=== PATIENT | female | born 1945 | race Caucasian/White ===

== ENCOUNTER → 2021-12-06 | Outpatient (CLI) | payer MEDICARE ==
--- NOTE | 2021-12-06 17:31 | CA ---
Transthoracic Echo Report Name: Mary Damon Age: 75 Gender: F : 1945 Exam Date: 12/06/2021 08:35 Exam Location: [place] [facility] Ht (in): 69 Wt (lb): 164 Ordering Physician: Jacob Shell DO Attending/Referring Phys: Online Journalist Elizabeth Donohue RDCS Procedure CPT: Indications: R07.9 CHEST PAIN, UNSPECIFIED Cardiac Hx: Technical Quality: Fair Contrast 1: Total Dose (mL): Contrast 2: Total Dose (mL): MEASUREMENTS (Male / Female) Normal Values 2D ECHO LV Diastolic Diameter PLAX 4.0 cm 4.2 - 5.9 / 3.9 - 5.3 cm LV Systolic Diameter PLAX 2.6 cm IVS Diastolic Thickness 1.3 cm 0.6 - 1.0 / 0.6 - 0.9 cm LVPW Diastolic Thickness 1.1 cm 0.6 - 1.0 / 0.6 - 0.9 cm LV Relative Wall Thickness 0.6 RV Internal Dim ED PLAX 2.5 cm LA Volume 60.6 cm??? 18 - 58 / 22 - 52 cm??? M-MODE Aortic Root Diameter MM 3.1 cm LA Systolic Diameter MM 3.5 cm LA Ao Ratio MM 1.1 AV Cusp Separation MM 1.9 cm DOPPLER AV Peak Velocity 164.4 cm/s AV Peak Gradient 10.8 mmHg AI Peak Velocity 433.0 cm/s AI Peak Gradient 75.0 mmHg AI Pressure Half Time 483.4 ms LVOT Peak Velocity 95.2 cm/s LVOT Peak Gradient 3.6 mmHg MV Area PHT 4.2 cm??? Mitral E Point Velocity 59.6 cm/s Mitral A Point Velocity 74.0 cm/s Mitral E to A Ratio 0.8 MV Deceleration Time 179.2 ms MV E' Velocity 2.9 cm/s Mitral E to MV E' Ratio 20.6 TR Peak Velocity 203.5 cm/s TR Peak Gradient 16.6 mmHg Right Ventricular Systolic Press 21.6 mmHg FINDINGS Left Ventricle Moderately increased left ventricular wall thickness. Normal left ventricular systolic function with mild inferior wall hypokinesis. Left ventricular ejection fraction is estimated at 55 %. Right Ventricle Normal right ventricular size and function. Right ventricular systolic pressure within normal limits. Right Atrium Normal right atrial size. Left Atrium Mildly increased left atrial volume. Mitral Valve Mild mitral annular calcification. Mitral valve thickened. Trace mitral regurgitation. No mitral stenosis. Aortic Valve Trileaflet aortic valve. Aortic valve sclerosis. Mild aortic regurgitation. No aortic stenosis. Tricuspid Valve Structurally normal tricuspid valve. Mild tricuspid regurgitation. Pulmonic Valve Trace pulmonic regurgitation. Pericardium No pericardial effusion. Aorta CONCLUSIONS LVH with left radical ejection fraction greater than 50% Mild inferior wall hypokinesis Previewed by: Dr. Nando Vega MD (Electronically Signed) Final Date: 06 December 2021 17:31
== END | disposition home or self-care (01) ==
LOC: RADECHMAIN 08:14
PROVIDERS: ATTEND Family Medicine
DX: I08.3 Combined rheumatic disorders of mitral, aortic and tricuspid valves (principal)
CPT/HCPCS: 93306

== ENCOUNTER → 2021-12-31 | Outpatient (CLI) | payer MEDICARE | END | disposition home or self-care (01) | LOC: RADNMMAIN 08:38 | PROVIDERS: ATTEND Family Medicine | DX: Z53.9 Procedure and treatment not carried out, unspecified reason (principal) ==

== ENCOUNTER → 2022-06-08 | Outpatient (CLI) | payer MEDICARE ==
--- NOTE | 2022-06-10 09:34 | MR ---
EXAMINATION TYPE: MR brain and iac wo/w con DATE OF EXAM: 06/08/2022 9:54 AM CLINICAL INDICATION:Female, 76 years old with history of H93.19 TINNITUS, H91.90 hearing loss; COMPARISON: None TECHNIQUE: Multi planar, multi sequence imaging was performed through the brain. Specialized thin s equences were obtained through the internal auditory canals. Pre-and post gadolinium sequences were obtained. MR contrast: IV Contrast: 7.5 cc Gadavist FINDINGS: Motion limited exam. The burr-white junctions, ventricular system, and cisterns appear unremarkable. Scattered foci of h igh T2 signal intensity are seen within the periventricular white matter. Midline structures show no abnormality. Diffusion-weighted imaging shows no evidence of restricted diffusion. The susceptibility weighted images do not reveal any evidence for micro-hemorrhage. The bone marrow signal is within normal limits. Paranasal sinuses and mastoid air cells: Mild scattered paranasal sinus disease. Trace left mastoid a ir cell effusion. Visualized orbits: Orbital contents are intact. After administration of gadolinium, no abnormal enhancement is seen. Motion limited exam. The internal auditory canal sequences demonstrate no significant irregularity. The 7th cranial nerve s, 8 cranial nerves, and cerebellar pontine angles appear unremarkable. After the administration rolly olinium, no abnormal enhancement is seen within the internal auditory canals. Vascular loop: None. IMPRESSION: Motion limited exam. 1. No evidence of intracranial mass nor acute/subacute CVA. 2. No evidence of internal auditory canal abnormality. 3. Trace left mastoid air cell effusion. 4. Nonspecific white matter changes, likely secondary to small vessel ischemic disease.
== END | disposition home or self-care (01) ==
LOC: RADMRIMAIN 08:51
PROVIDERS: ATTEND Otolaryngology
DX: H93.12 Tinnitus, left ear (principal); H91.92 Unspecified hearing loss, left ear; R90.82 White matter disease, unspecified
CPT/HCPCS: 70553; A9585

== ENCOUNTER → 2023-07-11 | Outpatient (CLI) | payer MEDICARE ==
--- NOTE | 2023-07-11 14:54 | USB ---
Reason for Exam: Clinical finding. Patient History: Menarche at age 7. First Full-Term at age 21. Hysterectomy at age 40. Postmenopausal. Risk Values: Vanessa 5 year model risk: 1.7%. NCI Lifetime model risk: 2.8%. Technique: Method: Targeted. Findings: The upper outer quadrant of the left breast, the axilla of the left breast and the retroareolar of the left breast were scanned. There is an irregular hypoechoic lesion at the 2:00 position 6 cm from the nipple. This would correlate with the mammographic finding. A large vascular structures within. There is a large hypoechoic area extending from this region indicating communication which may be related to the lesion. Based on the apparent tail and the lesion, this lesion may measure 4.2 x 1.7 cm. Overall Assessment: Highly suggestive of malignancy, BI-RAD 5 Management: Surgical Consultation of the left breast. Ultrasound Core Biopsy of the left breast. A clinical breast exam by your physician is recommended on an annual basis and results should be correlated with mammographic findings. This exam should not preclude additional follow-up of suspicious palpable abnormalities. Results were given to the patient verbally at the time of exam. Electronically signed and approved by: Claudy Henderson D.O. Radiologis
== END | disposition home or self-care (01) ==
LOC: RADUSWWP 12:53
PROVIDERS: ATTEND Family Medicine
DX: N63.0 Unspecified lump in unspecified breast (principal); Z78.0 Asymptomatic menopausal state
CPT/HCPCS: 77066; 76642; G0279; 77062

== ENCOUNTER → 2023-07-17 | Outpatient (CLI) | payer MEDICARE ==
--- NOTE | 2023-07-17 14:22 | XR ---
EXAMINATION TYPE: XR abdomen 1V DATE OF EXAM: 07/17/2023 COMPARISON: NONE HISTORY: Pain TECHNIQUE: Single supine KUB image of the abdomen is obtained FINDINGS: Small bowel demonstrates no evidence for dilatation or air fluid levels. Gas and fecal material is seen in non-distended colon. No convincing evidence for pneumoperitoneum. No unusual calcifications. The lung bases are clear. The osseous structures are intact. IMPRESSION: 1. Overall nonobstructive bowel gas pattern.
== END | disposition home or self-care (01) ==
LOC: RADXRMAIN 09:55
PROVIDERS: ATTEND Family Medicine
DX: K59.00 Constipation, unspecified (principal); R10.9 Unspecified abdominal pain
CPT/HCPCS: 74018

== ENCOUNTER → 2023-08-07 | Day surgery (SDC) | payer MEDICARE ==
--- NOTE | 2023-08-15 13:37 | MM ---
Reason for Exam: Post Procedure Mammogram. Last screening mammogram was performed less than 1 month ago. Patient History: Menarche at age 7. First Full-Term at age 21. Hysterectomy at age 40. Postmenopausal. Risk Values: Vanessa 5 year model risk: 1.7%. NCI Lifetime model risk: 2.8%. Prior Study Comparison: 07/11/2023 Left US breast limited LT, [facility]. 07/11/2023 Bilateral MG 3D diag mammo w/cad LIVE, [facility]. Tissue Density: Left: There are scattered areas of fibroglandular density. Pathology Description: Location: 2 o'clock. Marker Left Behind. Needle Type: Mammotome Cores: 6 Gauge: 13 Pathology Description: Location: 3 o'clock. Marker Left Behind. Needle Type: Mammotome Cores: 4 Gauge: 13 The procedure of ultrasound guided core biopsy was explained to the patient. Benefits, alternatives, and risks were discussed. An informed consent was then obtained. The solid mass at the 2:00 position, 6 cm from the nipple is identified and targeted for biopsy. However, we note an elongated tail which extends from the mass which could potentially increased in size up to 3.9 cm if this represents tumor as well. For this reason, we decided to biopsy the tail separately. The patient was placed in supine positioning for imaging and for the procedure. The overlying skin was prepped and draped in usual sterile fashion. Lidocaine was used as anesthetic into the skin followed by lidocaine/epinephrine into the subcutaneous tissue up to area of concern in the left breast at each site in turn. A: 3:00 tail: Under ultrasound guidance, a 13-gauge vacuum-assisted mammotome Elite biopsy gun device was used to obtain 4 core samples. Following this, a HydroMark Butterfly clip was left in lesion. B: 2:00 Mass: Under ultrasound guidance, a 13-gauge vacuum-assisted mammotome Elite biopsy gun device was used to obtain 6 core samples. Following this, a HydroMark Coil clip was left at the far periphery of the lesion. The patient tolerated the procedure well without any immediate complication. The patient was kept in the radiology department for short stay after the procedure and then discharged home in stable condition. Postprocedure mammogram: The patient was transferred to mammography for physician ordered post procedure mammogram for clip placement verification. Post procedure mammogram shows clips in place. Distance between the 2 clips is nearly 4 cm. IMPRESSION: Successful, uncomplicated ultrasound guided core biopsy of both the 2:00 mass in the left breast as well as a contiguous tail which extends down to the 3:00 position. Distance between the 2 clips is nearly 4 cm. Full pathology results to follow. Pathology Results: Result: Malignant, Invasive ductal carcinoma. A. LEFT BREAST, THREE O'CLOCK, ULTRASOUND GUIDED NEEDLE CORE BIOPSY: Benign breast with fibrocystic changes including fibrosis and focal apocrine metaplasia. Rare microcalcifications are identified. B. LEFT BREAST, TWO O'CLOCK, ULTRASOUND GUIDED NEEDLE CORE BIOPSY: Invasive poorly differentiated ductal carcinoma (Grade 3) with cribriform features. See Surgical Pathology Cancer Case Summary. Overall Assessment: Malignant Assessment: MG diagnostic mammo LT wo CAD. - Left: Known biopsy proven malignancy, BI-RAD 6. Management: Surgical Consultation of the left breast. Electronically signed and approved by: Tiffanie Earl M.D. Radiologist
== END ==
LOC: RADUSWWP 12:23
PROVIDERS: ATTEND Surgery
DX: C50.212 Malignant neoplasm of upper-inner quadrant of left female breast (principal); N60.12 Diffuse cystic mastopathy of left breast; N60.82 Other benign mammary dysplasias of left breast; R92.8 Other abnormal and inconclusive findings on diagnostic imaging of breast; Z78.0 Asymptomatic menopausal state
CPT/HCPCS: 88305; 88342; 88341; 77065; 19083; 19084; A4648

== ENCOUNTER → 2023-08-21 | Outpatient (CLI) | payer MEDICARE ==
--- NOTE | 2023-08-21 11:44 | FL ---
EXAMINATION TYPE: FL barium enema DATE OF EXAM: 08/21/2023 COMPARISON: NONE HISTORY: Failed colonoscopy TECHNIQUE: A single contrast barium enema study is performed. A total of 2 minutes and 41 seconds o f fluoroscopic time was utilized during procedure and 25 images obtained. Total dose area product (D AP) in uGy*m?, mGy*cm? (or similar): The provided. FINDINGS: Tiller Man view of the abdomen shows overall non-obstructive bowel gas pattern. Diffuse osteope nanette with curvature of the spine. Vascular calcifications in the pelvis. Patient difficulty with retaining the enema barium enema catheter. Multiple attempts were made. Contr ast could be seen to level the transverse colon. There was evidence of redundancy of the sigmoid colo n with severe diverticulosis. Assessment for polypoid lesion limited. There was a area of localized n arrowing at the junction of the sigmoid colon and distal left colon. Difficult to determine if this i s related to diverticulosis. On the third attempt at contrast administration the area does distend sl ightly more than on the prior attempts. Stricture or annular lesion not excluded. IMPRESSION: 1. Redundancy of the sigmoid colon with severe diverticulosis. 2. Localized area of narrowing at the level of the junction of the left colon and proximal sigmoid co jennifer. This may be related to intramuscular hyperplasia\and muscular spasm from severe diverticulosis. On the third attempt at contrast administration the area does distend slightly more than on the prior attempts. An annular lesion not entirely excluded.
== END | disposition home or self-care (01) ==
LOC: RADFLMAIN 09:12
PROVIDERS: ATTEND Surgery
DX: K57.30 Diverticulosis of large intestine without perforation or abscess without bleeding (principal)
CPT/HCPCS: 74270

== ENCOUNTER 2023-08-29 08:25 | Day surgery (SDC) | payer MEDICARE ==
--- NOTE | 2023-08-29 07:35 | P.HPADDEND ---
H&P Addendum H&P Addendum Date: 08/29/23 Please refer to recent history and physicals from July. Patient here today after recently diagnosed stage IIa left breast cancer. She and I discussed the surgical options again at our recent visit. She underwent colonoscopy and subsequent barium enema as well. Will proceed with left breast wire locali zation lumpectomy with bracketed wires, left sentinel lymph node biopsy/injection. Risks of bleeding, infection, scarring, dimpling, numbness, poor healing, seroma, nerve injury, lymphedema, recurrence, possible need for further surgeries reviewed. Patient understands and wishes to proceed.
--- NOTE | 2023-08-29 07:35 | P.NAPBC ---
NAPBC Queries - NAPBC Queries Was patient's case review presented at [facility] tumor board? If no, comment.: Yes Was patient's pathology reviewed at [facility]? If no, comment.: Yes Was breast conservation surgery offered? If no, comment.: Yes Was sentinel node biopsy offered? If no, comment.: Yes Was diagnosis confirmed by percutaneous core biopsy? If no, comment.: Yes Is patient mastectomy patient?: No Was a preop referral to reconstructive surgeon offered?: Yes Clinical Stage: 2
[~2023-08-29 08:25] MED LIST: HYDROmorphone 0.5 MG/0.5 ML SYRINGE IVP PRN; LACTATED RINGERS 1,000 ML IV SCH; LIDOCAINE 1% (10MG/ML) FOR IV START INTRADERMA PRN; MIDAZOLAM 2 MG/2 ML VIAL IV PRN; fentaNYL (PF) 50 MCG/ML 2 ML AMP IV PRN
[2023-08-29] MEDS: ALPRAZolam 0.25 MG TAB PO STA (09:36)
[2023-08-29] MEDS: LIDOCAINE 1% INJ 10MG/ML (20 ML MDV) SQ ONE (10:13)
[2023-08-29 10:48] VITALS: TEMP 98.1
[2023-08-29] MEDS: DEXAMETHASONE SOD PHOSPHATE 4 MG/ML 1 ML VIAL IV ONE (11:00)
[2023-08-29] MEDS: IV FLUID CONTINUATION 1,000 ML IV ONE (11:00)
[2023-08-29] MEDS: ONDANSETRON 4 MG/2 ML VIAL IVP ONE (11:00)
[2023-08-29] MEDS: HEPARIN SODIUM,PORCINE 5,000 UNIT/ML 1 ML VIAL SQ ONE (11:42)
[2023-08-29] MEDS ORDERED: LIDOCAINE 1% INJ 10MG/ML (20 ML MDV) ONE (11:57)
[2023-08-29] MEDS ORDERED: MIDAZOLAM 2 MG/2 ML VIAL ONE (11:57)
[2023-08-29] MEDS ORDERED: PROPOFOL 10 MG/ML 20 ML VIAL IV ONE (11:57)
[2023-08-29] MEDS ORDERED: WATER FOR INJECTION, STERILE 10 ML VIAL IV ONE (11:57)
[2023-08-29] MEDS ORDERED: ePHEDrine 50 MG/ML 1 ML VIAL ONE (11:57)
[2023-08-29] MEDS ORDERED: fentaNYL (PF) 50 MCG/ML 2 ML AMP ONE (11:57)
[2023-08-29] MEDS: METHYLENE BLUE 50 MG/10 ML AMPUL MISCELLANE ONE (12:16)
[2023-08-29] MEDS: BUPIVACAINE (PF) 0.25% 30 ML VIAL SQ ONE ×2 (12:28)
[2023-08-29] MEDS: LACTATED RINGERS 1,000 ML IV ONE (13:01)
--- NOTE | 2023-08-29 13:05 | NM ---
EXAMINATION TYPE: NM sentinel node injection DATE OF EXAM: 08/29/2023 COMPARISON: NONE CLINICAL INDICATION: Female, 77 years old with history of C50.9 LEFT BREAST CANCER; TECHNIQUE AND FINDINGS: The procedure of sentinel lymph node injection was explained to the patient. The benefits, alternatives, and risks were discussed. An informed consent was then obtained. Overlying skin is cleaned with sterile alcohol. Following this, 485 uCi Tc99m Tilmanocept was inject ed in the upper outer aspect of the left nipple intradermally. The patient tolerated the procedure well without any immediate complication. The patient was kept in the radiology department for short stay after the procedure and then taken to surgery for surgical p rocedure what is presumed intraoperative gamma probe will be used for sentinel lymph node detection. IMPRESSION: Left breast radiotracer injection for sentinel node localization as above.
[2023-08-29] MEDS ORDERED: traMADol 50 MG TAB PO STA (13:50)
[2023-08-29] MEDS: LABETALOL SYRINGE 5 MG/ML (4 ML SYR) IVP STA (15:00)
[2023-08-29] MEDS: hydrALAZINE HCL 20 MG/ML 1 ML VIAL IVP PRN (16:10)
[2023-08-29] MEDS: ENALAPRILAT 1.25 MG/ML 1 ML VIAL IVP PRN (16:44)
[2023-08-29 17:52] VITALS: RESP 20
[2023-08-29 17:54] VITALS: BP 171/90; PULSE 80
[2023-08-29] MEDS: ENALAPRILAT 1.25 MG/ML 1 ML VIAL IVP STA (17:59)
[2023-08-29] MEDS ORDERED: ACETAMINOPHEN TAB 325 MG TAB PO SCH (18:00)
--- NOTE | 2023-08-29 18:00 | P.OP ---
Date of Procedure: 08/29/23 Procedure(s) Performed: PREOPERATIVE DIAGNOSIS: Left breast cancer POSTOPERATIVE DIAGNOSIS: Same PROCEDURE: Left breast wire localization lumpectomy with sentinel lymph node biopsy SURGEON: Gia EBL: 20 cc ANESTHESIA: General COMPLICATIONS: None OPERATIVE PROCEDURE: Patient was placed on the operating room table in the supine position. 2 mL of methylene blue was injected into the subareolar space. The breast was then massaged for 5 minutes. The breast was prepped and draped in usual sterile fashion. The left axilla was addressed at that time. The hot spot in the left axilla was identified. A small curvilinear incision was made using the scalpel. Dissection down through the subcutaneous tissues took place using electrocautery. Using the neoprobe I identified a total of 3 sentinel lymph nodes. One of the was blue in color. These had benign exam characteristics. These were all removed and sent to pathology for permanent sectioning. The surgical site was inspected and no bleeding was seen. The subcutaneous tissues were closed using 3-0 Vicryl sutures. The skin was closed using 4-0 Monocryl sutures. The patient had 2 wires entering the breast. One was superior and medial at around 1:00 the other was inferior and lateral at around 2:00. A curvilinear incision was first made between the 2 wire entrance sites. As I was starting to dissect superiorly it became evident that the tumor was immediately deep to the dermis. I decided to remove a curvilinear portion of skin overlying the palpable mass. The incision was then recreated superior to the wire entrance site. The lumpectomy took place excising tissue circumferentially around both the palpable mass at the superior medial wire and around the inferior wire as well. The specimen was painted the appropriate 6 colors. This was then sent to x-ray for imaging. Clips were used to identify the lumpectomy cavity. The clip was confirmed to be within the lumpectomy specimen by radiology. The subcutaneous tissues were closed using 3-0 Vicryl sutures. The skin was closed using a running 4-0 Monocryl stitch. Skin glue was then applied. DISPOSITION: Stable to recovery room
[2023-08-31] MEDS ORDERED: MELOXICAM 7.5 MG TAB PO SCH (09:00)
--- NOTE | 2023-09-10 10:51 | MM ---
Pathology Description: Approach: CC FA Needle Type: 7 cm Kopan 9 CM NEEDLE TOO/ BRACKETEDThe procedure of needle localization with wire placement and than surgical excision was explained to the patient. Benefits, alternatives, and risks were discussed. An informed consent was then obtained. Bracket technique and a superior approach was determined. The shortest pathway for procedure was chosen. Shortest pathway was a superior approach. The overlying skin was prepped and draped in usual sterile fashion. Lidocaine was used as anesthetic into the skin and subcutaneous tissue up to the level of area of concern. A 7 cm Kopans needle was used for the posterior bracket along the margin of the dominant mass. A 5 cm Kopans needle was used for the anterior bracket at the margin of the tail seen by ultrasound. These were placed via a superior approach under mammographic guidance. Subsequent 90 degrees mammogram show the needles to be in satisfactory position relative to the targeted area. At this point, wires were placed and the needles were withdrawn. The wire was fixed to patient's skin. Images were marked for surgeon. The patient tolerated the procedure well without any immediate complication. The patient was kept in the radiology department for short stay after the procedure and then taken to surgery for surgical excision. Targeted mass, both wires, and both clips are identified in specimen mammogram. The patient was kept in hospital for short stay after the procedure and then discharged home in stable condition. IMPRESSION: Successful, uncomplicated needle localization with bracketing and surgical excision of biopsy-proven left breast cancer including a tail extending from the mass. Full pathology results to follow. Pathology Results: Result: Malignant, Invasive ductal carcinoma. Pathology and radiology were reviewed. Findings are concordant. A. LEFT BREAST, LUMPECTOMY: Invasive grade 3 ductal carcinoma with cribriforming features and separate more lateral intermediate grade ductal carcinoma in situ (DCIS). See surgical pathology cancer case summary and comment. All margins negative for in situ or invasive carcinoma. B. LYMPH NODES, LEFT SENTINEL, DISSECTION: One of two sentinel lymph nodes positive for micrometastatic carcinoma (see comment and cancer protocol). Overall Assessment: Malignant Management: Surgical Consultation of the left breast. Electronically signed and approved by: Tiffanie Earl M.D. Radiologist
== END 2023-08-29 18:26 | disposition home or self-care (01) ==
LOC: OR 08:25
PROVIDERS: ATTEND Surgery
DX: D05.12 Intraductal carcinoma in situ of left breast (principal); N60.89 Other benign mammary dysplasias of unspecified breast; Z85.3 Personal history of malignant neoplasm of breast
CPT/HCPCS: 19301; 38500; 88342; 88307; 88341; 76098; 19281; 38792; C1819; A9520; J2250; J0360; J1644; J1100; J0690; J2405; J2001; J3010; J2704; Q9968; J0665; J1920

== ENCOUNTER → 2023-09-02 | Outpatient (CLI) | payer MEDICARE ==
[2023-09-02 11:15] LABS: African American GFR (CKD) 58 (>60 ml/min/1.73 sqM); Blood Urea Nitrogen 18 mg/dL (7-17); Non-African American GFR(CKD) 50 (>60 ml/min/1.73 sqM)
--- NOTE | 2023-09-02 13:29 | CT ---
EXAMINATION TYPE: CT abdomen pelvis w con CT DLP: 659.1 mGycm, Automated exposure control for dose reduction was used. DATE OF EXAM: 09/02/2023 1:00 PM COMPARISON: None CLINICAL INDICATION:Female, 77 years old with history of K57.92 DIVERTICULITIS; UNABLE TO VIEW COLON/ CONSTIPATION TECHNIQUE: Standard CT of the abdomen and pelvis following the administration of 100 cc of Isovue 3 00 IV contrast material and oral contrast. Coronal and sagittal reformats were performed. FINDINGS: LOWER CHEST: Bibasilar linear atelectasis. Skin thickening identified of the visualized left breast l ikely related to recent surgery. Cardiomegaly. Elevation of the right hemidiaphragm. ABDOMEN LIVER: Unremarkable GALLBLADDER AND BILE DUCTS: Calcified 1.7 cm gallstone identified. No biliary ductal dilatation. PANCREAS: Unremarkable. SPLEEN: Unremarkable. ADRENAL GLANDS: Unremarkable. KIDNEYS AND URETERS: No evidence of hydronephrosis or renal calculus. The kidneys enhance symmetrical ly. Subcentimeter hypodense focus within the left kidney which is too small to characterize but likel y represents a cyst. Contrast is demonstrated within both collecting systems on the delayed phase. PELVIS BLADDER: Unremarkable REPRODUCTIVE: Uterus appears surgically absent. ABDOMEN & PELVIS STOMACH AND BOWEL: No evidence of bowel obstruction. Enteric contrast reaches the rectum. Sigmoid div erticula are identified without definitive surrounding inflammatory changes. No focal bowel wall thic kening or surrounding inflammatory changes. No pericolonic fluid collections. PERITONEUM: No evidence of pneumoperitoneum or free fluid. VASCULATURE: Moderate atherosclerotic calcifications are present throughout the abdominal aorta and i ts branches. No evidence of aortic aneurysm. MUSCULOSKELETAL: No acute osseous abnormalities. No aggressive osseous lesion. Remote central talya terence deformities versus Schmorl's nodes involving the superior endplates of the L2, L3, L5 vertebral bodies. Remote anterior wedge compression deformity of the T11 vertebral body with approximately 40% height loss. No retropulsion. Grade 1 anterolisthesis of L4 on L5 without pars defects. LYMPH NODES: No gross evidence for lymphadenopathy. SOFT TISSUE/ABDOMINAL WALL: Unremarkable IMPRESSION: 1. Sigmoid diverticulosis without evidence for acute diverticulitis. 2. Cholelithiasis. 3. Postsurgical changes of the left breast partially visualized.
== END | disposition home or self-care (01) ==
LOC: RADCTMAIN 10:39
PROVIDERS: ATTEND Surgery
DX: K57.30 Diverticulosis of large intestine without perforation or abscess without bleeding (principal); K57.92 Diverticulitis of intestine, part unspecified, without perforation or abscess without bleeding; K80.20 Calculus of gallbladder without cholecystitis without obstruction
CPT/HCPCS: 74177; 82565; 84520

== ENCOUNTER → 2024-03-08 | Outpatient (CLI) | payer MEDICARE ==
--- NOTE | 2024-03-08 11:27 | XR ---
EXAMINATION TYPE: XR abdomen 1V DATE OF EXAM: 03/08/2024 10:44 AM COMPARISON: None. CLINICAL INDICATION: Female, 78 years old with history of K59.00 constipation, TECHNIQUE: Single view of the abdomen. FINDINGS: Small bowel demonstrates no evidence for dilatation or air fluid levels. Gas and fecal material is seen in non-distended colon. No convincing evidence for pneumoperitoneum. No unusual calcifications. The lung bases are clear. The osseous structures are intact. IMPRESSION: 1. Overall nonobstructive bowel gas pattern. [facility], , 03/08/2024 11:25 AM
== END | disposition home or self-care (01) ==
LOC: RADXRMAIN 10:24
PROVIDERS: ATTEND Family Medicine
DX: K59.00 Constipation, unspecified (principal)
CPT/HCPCS: 74018

== ENCOUNTER → 2024-07-01 | Outpatient (CLI) | payer MEDICARE ==
--- NOTE | 2024-07-01 11:11 | MM ---
Reason for Exam: Additional evaluation requested from prior study. Last screening mammogram was performed 12 month(s) ago. Patient History: Menarche at age 7. First Full-Term at age 21. Hysterectomy at age 40. Postmenopausal. Breast cancer, left, age 77. Breast cancer, left, age 77. 08/29/2023, Lumpectomy on the Left side. 08/29/2023, Malignant MG pre op needle loc LT on the left side. 08/07/2023, US biopsy breast add'l VAD LT on the Left side. 08/07/2023, Malignant US biopsy breast VAD LT on the left side. Tissue Density: There are scattered areas of fibroglandular density. Findings: Analyzed By CAD. Postsurgical and posttreatment changes left breast. No suspicious microcalcification or discrete abnormality is seen here. Ongoing short interval surveillance follow-up recommended given recent breast cancer treatment. Chronic nodularity and asymmetric densities on the right. Benign vascular calcifications on the right. Overall Assessment: Probably benign, BI-RAD 3 Management: Diagnostic Mammogram of the left breast in 6 months. To assess for any evolving posttreatment change. Results were given to the patient verbally at the time of exam. Patient should continue monthly self-breast exams. A clinical breast exam by your physician is recommended on an annual basis. This exam should not preclude additional follow-up of suspicious palpable abnormalities. [facility], , 07/01/2024 11:08 AM. Electronically signed and approved by: Tiffanie Earl M.D. Radiologist
== END | disposition home or self-care (01) ==
LOC: RADMAMWWP 10:42
PROVIDERS: ATTEND Surgery
DX: R92.8 Other abnormal and inconclusive findings on diagnostic imaging of breast (principal); R92.323 Mammographic fibroglandular density, bilateral breasts; Z78.0 Asymptomatic menopausal state; Z85.3 Personal history of malignant neoplasm of breast
CPT/HCPCS: 77066; G0279; 77062